=== PATIENT | male | born 1950 | race Caucasian/White ===

== ENCOUNTER 2016-10-11 09:49 | Emergency (ER) | payer OTHER ==
[~2016-10-11] VITALS: Ht 175.3 cm; Wt 74.8 kg
--- NOTE | 2016-10-11 10:36 | ED GI/GU/ABDOMINAL COMPLAINT ---
History of Present Illness General Chief Complaint: Abdominal Pain/Flank Pain Stated Complaint: ?KIDNEY STONES Source: patient Exam Limitations: no limitations Vital Signs & Intake/Output Vital Signs & Intake/Output Vital Signs Date Time Temp Pulse Resp B/P Pulse O2 O2 Flow FiO2 Ox Delivery Rate 10/11 1230 98.1 73 0 142/87 98 Room Air Room Air 10/11 0953 97.0 66 20 177/94 98 Room Air Room Air Allergies Coded Allergies: NO KNOWN ALLERGIES (10/11/16) Reconcile Medications Hydrocodone/Acetaminophen (Vicodin 5-300 MG Tablet) 5 MG-300 MG TABLET 1 TAB PO Q4-6 PRN PAIN Ondansetron HCl (Zofran) 4 MG TABLET 1 TAB PO Q6-8P PRN NAUSEA Tamsulosin HCl (Flomax) 0.4 MG CAP.ER.24H 1 CAP PO DAILY KIDNEY STONE Triage Note: PT TO ED WITH C/O SUDDEN ONSET OF BACK PAIN WHILE DRIVING TO WORK, HAS HX OF BACK SURGERY, HERNIATED DISC IN NECK, AND KIDNEY STONES. PT VOMITING IN WAITING ROOM GARBAGE PAIL. Triage Nurses Notes Reviewed? yes Onset: Abrupt Duration: constant Timing: single episode today Quality/Severity: sharpness, severe, stabbing, throbbing Severity Numbers: 10 Location: right flank Radiation: back Activities at Onset: none HPI: Patient is a 65-year-old male with a past medical history hypertension and kidney stones who presents to emergency room with a 3 hour history of sharp stabbing severe acute onset of right flank and right back pain. Symptoms are very similar to previous episodes of kidney stones. Patient has had multiple episodes of nonbloody nonbilious emesis. Last bowel movement was yesterday no blood no melena noted. No medications prior to arrival. (DELIA RADFORD) Past History Travel History Traveled to [place] past 21 day No Medical History Any Pertinent Medical History? see below for history Neurological: NONE EENT: NONE Cardiovascular: myocardial infarction, CAROTID SURG 2012 Respiratory: NONE Gastrointestinal: NONE Hepatic: NONE Renal: NONE Musculoskeletal: chronic back pain, disk herniation, LOW BACK 2004 Psychiatric: NONE Endocrine: NONE Blood Disorders: NONE Cancer(s): NONE Surgical History Surgical History: non-contributory Psychosocial History What is your primary language Slovenian Tobacco Use: Quit >30 days ago ETOH Use: occasional use Illicit Drug Use: denies illicit drug use Family History Hx Contributory? No (DELIA RADFORD) Review of Systems Review of Systems Constitutional: Reports: no symptoms. EENTM: Reports: no symptoms. Respiratory: Reports: no symptoms. Cardiovascular: Reports: no symptoms. GI: Reports: see HPI. Genitourinary: Reports: see HPI. Musculoskeletal: Reports: see HPI. Skin: Reports: no symptoms. Neurological/Psychological: Reports: no symptoms. Hematologic/Endocrine: Reports: no symptoms. Immunologic/Allergic: Reports: no symptoms. All Other Systems: Reviewed and Negative (DELIA RADFORD) Physical Exam Physical Exam General Appearance: moderate distress Gastrointestinal: normal bowel sounds, soft, rIGHT FLANK POINT TENDERNESS Comments: HEENT: Normal EENT exam, Neck: Supple, no lymphadenopathy, normal range of motion without pain or tenderness Back: Right CVA point tenderness Cardiovascular: Regular rate and rhythms no murmurs rubs or gallops, normal JVP Respiratory: Chest nontender. No respiratory distress.breath sounds clear to auscultation bilaterally Extremity: No edema, no calf tenderness to palpation, normal and equal pulses. Neuro: Alert oriented x3, motor sensory normal, Skin: No appreciable rash on exposed skin, skin is warm and dry. Psych: Mood and affect is normal, memory and judgment is normal. Core Measures ACS in differential dx? No Severe Sepsis Present: No Septic Shock Present: No (DELIA RADFORD) Progress Differential Diagnosis: AAA, AMI, appendicitis, biliary colic, bowel obstruction , colon cancer, cholecystitis, diverticulitis, epididymitis, esophageal varices, gastritis, hepatitis, hernia, hemorrhoids, ischemic bowel, inflamm bowel dis, Priya-Haroldo tear, orchitis, pancreatitis, prostatitis, peptic ulcer, PUD/GERD, perforated viscous, pyelonephritis, SBO, STD, testicular torsion, ureterolithiasis, urinary retention, urethritis, UTI/pyelo Plan of Care: Orders Procedure Date/time Status URINALYSIS 10/11 1035 Active COMPREHENSIVE METABOLIC PANEL 10/11 1027 Complete CBC WITHOUT DIFFERENTIAL 10/11 1027 Complete Laboratory Tests 10/11/16 1028: Anion Gap 12, Estimated GFR > 60, BUN/Creatinine Ratio 20.8, Glucose 136 H, Calcium 9.4, Total Bilirubin 0.8, AST 40, ALT 50, Alkaline Phosphatase 62, Total Protein 7.0, Albumin 4.3, Globulin 2.7, Albumin/Globulin Ratio 1.6, CBC w Diff NO MAN DIFF REQ, RBC 5.19, MCV 86.1, MCH 29.3, RDW 14.3, MPV 7.6, Gran % 86.2 H , Lymphocytes % 11.2 L, Monocytes % 2.1, Eosinophils % 0.4, Basophils % 0.1, Absolute Granulocytes 10.6 H, Absolute Lymphocytes 1.4, Absolute Monocytes 0.3, Absolute Eosinophils 0, Absolute Basophils 0, PUBS MCHC 34.0 10/11/2016 11:38:55 AM reevaluation the patient, patient had complete resolution of pain and is in no apparent distress and is noted on CT scan findings of right nephrolithiasis. Patient currently is being by mouth challenge Patient was able tolerate by mouth on discharge patient looks well no apparent distress and was strongly advised to follow-up urology and he will comply (KAYLEE LIZAMA,DELIA) Diagnostic Imaging: Viewed by Me: CT Scan. Radiology Impression: acute abnormality Initial ED EKG: none Comments: PATIENT: MOUNA FERNANDES PRESENT AGE: 65 PATIENT ACCOUNT NO: [id number] : 52 LOCATION: [facility] ORDERING PHYSICIAN: DELIA LIZAMA SERVICE DATE: 10/11/16 EXAM TYPE: CAT - CT ABD & PELVIS W/O IV CONTRAS EXAMINATION: CT ABDOMEN AND PELVIS WITHOUT CONTRAST CLINICAL INFORMATION: Right-sided flank pain. History of urolithiasis. COMPARISON: 08/29/2012. TECHNIQUE: Multidetector volumetric imaging was performed from the superior aspect of the liver through the pubic symphysis. Sagittal and coronal reformatted images were obtained on the technologist's workstation. DLP: 275 mGy-cm FINDINGS: LUNG BASES: There is a linear focus of discoid atelectasis in the right costophrenic angle posteriorly. KIDNEYS AND URETERS: Right kidney appears mildly edematous with mild perinephric stranding and mild right-sided hydronephrosis and proximal hydroureteronephrosis with a with a 3-4 mm proximal right ureteral calculus at the L3 level. There is a 2-3 mm right lower pole calculus with 2-3 smaller mid to upper pole right renal calculi also noted. A few small low-density right renal lesions are again noted not as well-seen on today's exam likely small cysts the largest appears septated with a peripheral calcification and cortical scarring slightly larger on today's exam 2.9 versus 2.6 cm on the previous exam. Imaging of the left kidney demonstrates multiple 3 under 5 mm calculi without evidence of hydronephrosis. There is a 1.8 cm cyst in the lower pole of the left kidney anteriorly previously 1.2 cm. BLADDER: Unremarkable. LIVER, GALLBLADDER, AND BILIARY TREE: The liver is normal in size, shape, and attenuation. No focal hepatic lesion or biliary ductal dilatation is present. The gallbladder is unremarkable with no evidence of radiopaque gallstones, gallbladder wall thickening, or obvious pericholecystic inflammatory changes. PANCREAS: Unremarkable. SPLEEN: Unremarkable. ADRENAL GLANDS: Unremarkable. GASTROINTESTINAL TRACT: Stomach and small bowel appear unremarkable. Appendix is normal-appearing. Colon is unremarkable in appearance. ABDOMINAL WALL: No significant hernia is appreciated. LYMPH NODES: Normal. VASCULAR: Abdominal aorta is tortuous with mild atherosclerotic aortic calcification with a 3.4 cm AP dimension fusiform shaped infrarenal abdominal aortic aneurysm measured on image 38 of series 2 previously 2.9 cm AP dimension. PELVIC VISCERA: Prostate is moderately enlarged, urinary bladder unremarkable. OSSEOUS STRUCTURES: There are multiple old healed right-sided rib fractures. There is mild to moderate loss of disc space height throughout the lumbar spine with mild to moderate broad-based disc osteophyte complexes most notably L2/L3 and 3/4 levels. No aggressive appearing osseous lesions are seen. IMPRESSION: 1. There is a 3 to 4 mm right proximal ureteral calculus with mild right-sided hydroureteronephrosis and mild edematous changes involving the right kidney. 2. Multiple small bilateral renal calculi. Stone burden has increased compared with the previous exam. 4. Small bilateral renal cysts are again noted, one of which is mildly complex in the lower pole of the right kidney. 3. Fusiform infrarenal abdominal aortic aneurysm. Follow-up is recommended. 4. Degenerative changes lumbar spine. (DELIA RADFORD) Departure Departure Disposition: HOME OR SELF CARE Condition: Stable Clinical Impression Primary Impression: Kidney stone on right side Referrals: HELENA SLADE MD (PCP/Family) HEMANTH BUTLER MD Additional Instructions: As discussed begin drinking plenty of water for hydration. Begin the prescription of Vicodin for pain, Zofran for nausea, and Flomax for your symptoms. Tomorrow please follow-up with your established urologist Dr. Butler for recheck of symptoms. If symptoms worsen return to emergency room. Prescriptions are waiting at your pharmacy Departure Forms: Customer Survey General Discharge Information Prescriptions: Current Visit Scripts Hydrocodone/Acetaminophen (Vicodin 5-300 MG Tablet) 1 TAB PO Q4-6 PRN PAIN #12 TAB Tamsulosin HCl (Flomax) 1 CAP PO DAILY #5 CAP Ondansetron HCl (Zofran) 1 TAB PO Q6-8P PRN NAUSEA #10 TAB (DELIA RADFORD) PA/STITCHING MACHINE SETTER Co-Sign Statement Statement: ED Attending supervision documentation- [x] I saw and evaluated the patient. I have also reviewed all the pertinent lab results and diagnostic results. I agree with the findings and the plan of care as documented in the PA's/STITCHING MACHINE SETTER's documentation. [] I have reviewed the ED Record and agree with the PA's/STITCHING MACHINE SETTER's documentation. [] Additions or exceptions (if any) to the PAs/STITCHING MACHINE SETTER's note and plan are summarized below: [] (DAIANA GARG DO
[2016-10-11 10:37] LABS: ABSOLUTE BASOPHIL COUNT 0 /CUMM (0.0-0.2); ABSOLUTE EOSINOPHIL COUNT 0 /CUMM (0.0-0.7); ABSOLUTE GRANULOCYTE CT 10.6 /CUMM (1.4-6.5); ABSOLUTE LYMPH COUNT 1.4 /CUMM (1.2-3.4); ABSOLUTE MONOCYTE COUNT 0.3 /CUMM (0.10-0.60); BASOPHIL % 0.1 % (0.0-2.0); EOSINOPHIL % 0.4 % (0-5); GRANULOCYTE % 86.2 % (42.2-75.2); HEMATOCRIT 44.7 % (42-52); MEAN CORPUSCULAR HGB 29.3 PG (27.0-31.0); MEAN CORPUSCULAR VOLUME 86.1 FL (80.0-94.0); MEAN PLATELET VOLUME 7.6 FL (7.4-10.4); PLATELET COUNT 210 /CUMM (130-400); RBC DISTRIBUTION WIDTH 14.3 % (11.5-14.5); RED BLOOD CELL CT 5.19 /CUMM (4.70-6.10); WHITE BLOOD CELL COUNT 12.3 /CUMM (4.8-10.8)
--- NOTE | 2016-10-11 11:22 | CT SCAN REPORT ---
EXAMINATION: CT ABDOMEN AND PELVIS WITHOUT CONTRAST CLINICAL INFORMATION: Right-sided flank pain. History of urolithiasis. COMPARISON: 08/29/2012. TECHNIQUE: Multidetector volumetric imaging was performed from the superior aspect of the liver through the pubic symphysis. Sagittal and coronal reformatted images were obtained on the technologist's workstation. DLP: 275 mGy-cm FINDINGS: LUNG BASES: There is a linear focus of discoid atelectasis in the right costophrenic angle posteriorly. KIDNEYS AND URETERS: Right kidney appears mildly edematous with mild perinephric stranding and mild right-sided hydronephrosis and proximal hydroureteronephrosis with a with a 3-4 mm proximal right ureteral calculus at the L3 level. There is a 2-3 mm right lower pole calculus with 2-3 smaller mid to upper pole right renal calculi also noted. A few small low-density right renal lesions are again noted not as well-seen on today's exam likely small cysts the largest appears septated with a peripheral calcification and cortical scarring slightly larger on today's exam 2.9 versus 2.6 cm on the previous exam. Imaging of the left kidney demonstrates multiple 3 under 5 mm calculi without evidence of hydronephrosis. There is a 1.8 cm cyst in the lower pole of the left kidney anteriorly previously 1.2 cm. BLADDER: Unremarkable. LIVER, GALLBLADDER, AND BILIARY TREE: The liver is normal in size, shape, and attenuation. No focal hepatic lesion or biliary ductal dilatation is present. The gallbladder is unremarkable with no evidence of radiopaque gallstones, gallbladder wall thickening, or obvious pericholecystic inflammatory changes. PANCREAS: Unremarkable. SPLEEN: Unremarkable. ADRENAL GLANDS: Unremarkable. GASTROINTESTINAL TRACT: Stomach and small bowel appear unremarkable. Appendix is normal-appearing. Colon is unremarkable in appearance. ABDOMINAL WALL: No significant hernia is appreciated. LYMPH NODES: Normal. VASCULAR: Abdominal aorta is tortuous with mild atherosclerotic aortic calcification with a 3.4 cm AP dimension fusiform shaped infrarenal abdominal aortic aneurysm measured on image 38 of series 2 previously 2.9 cm AP dimension. PELVIC VISCERA: Prostate is moderately enlarged, urinary bladder unremarkable. OSSEOUS STRUCTURES: There are multiple old healed right-sided rib fractures. There is mild to moderate loss of disc space height throughout the lumbar spine with mild to moderate broad-based disc osteophyte complexes most notably L2/L3 and 3/4 levels. No aggressive appearing osseous lesions are seen. IMPRESSION: 1. There is a 3 to 4 mm right proximal ureteral calculus with mild right-sided hydroureteronephrosis and mild edematous changes involving the right kidney. 2. Multiple small bilateral renal calculi. Stone burden has increased compared with the previous exam. 4. Small bilateral renal cysts are again noted, one of which is mildly complex in the lower pole of the right kidney. 3. Fusiform infrarenal abdominal aortic aneurysm. Follow-up is recommended. 4. Degenerative changes lumbar spine.
[2016-10-11] MEDS ORDERED: ZOFRAN4 M2 PO (12:00)
[2016-10-11] MEDS ORDERED: VICODIN 5-3001 EACH PO (12:00)
[2016-10-11] MEDS ORDERED: FLOMAX0.4 M1 PO (12:00)
[2016-10-11 12:30] VITALS: BP 142/87
[2016-10-20] MEDS ORDERED: ASPIRIN EC81 M1 PO (19:03)
[2016-10-20] MEDS ORDERED: PRALUENT P75 MG/1 ML INJ (19:03)
[2016-10-20] MEDS ORDERED: BYSTOLIC5 M1 PO (19:04)
[2016-10-28] MEDS ORDERED: RAPAFLO4 M1 (08:08)
== END 2016-10-11 12:53 ==
LOC: ERH 09:49
PROVIDERS: Emergency Medicine
DX: N20.0 Calculus of kidney (principal); M54.9 Dorsalgia, unspecified; I10 Essential (primary) hypertension; Z87.891 Personal history of nicotine dependence
CPT/HCPCS: 74176; 96374; 96375; J1885; J2405

== ENCOUNTER → 2016-10-25 | Day surgery (SDC) | payer OTHER ==
[~2016-10-25] VITALS: Ht 175.3 cm; Wt 74.8 kg
[~2016-10-25] MED LIST: ASPIRIN EC81 M1 PO; BYSTOLIC5 M1 PO; FLOMAX0.4 M1 PO; PRALUENT P75 MG/1 ML INJ; RAPAFLO4 M1; VICODIN 5-3001 EACH PO; ZOFRAN4 M2 PO
--- NOTE | 2016-10-25 11:42 | Operative Report ---
Operative/Inv Procedure Report Surgery Date: 10/25/16 Name of Procedure: right ureter ESWL/fluoroscopy Pre-Operative Diagnosis: bilateral stones Post-Operative Diagnosis: same Estimated Blood Loss: scant Surgeon/Hospice Aide: HEMANTH THOMPSON MD Anesthesia: moderate sedation Complications: none Operative/Procedure Note Note: The patient was taken to the operating room and placed on the ESWL table in supine position. With the patient awake, timeout was performed to cofirm correct identity, procedure, laterality, anesth., and other pertinent sean- operative information. The patient's RIGHT flank was placed over the table cut -out, overlying the dome of the shockwave generator. C-arm fluroscopy, as well as renal US, was used to locate the stone, and evaluate the RIGHT kidney. The stone was clearly visible on fluoroscopy at the distal right ureter, measuring approximately 7 mm in size. Renal US confimred mild hydronephrosis. After adequate anesthesia, the right ureter stone's position was optimized for Shockwave lithotrypsy using fluoroscopy in AP and oblique views. The E.S.W.L. was initiated at low power levels x 200 shocks. After noting the patient's tolerance to the shockwaves, the shock wave power level was quickly maximized. Toward the end of the procedure, the composition of the stone had changed significantly indicating the pulverization of the ureter stone. A total of 3000 shockwaves were delivered to the stone in order to achieve adequate lithotrypsy. The patient tolerated both the procedure well, was awakened, and taken to recovery in satisfactory condition via stretcher. The pt will be dischared home with pain meds, diet orders, and intructions to catch fragments with straining the urine. The patient is to have follow-up renal ultrasound and KUB in 1-2 weeks, prior to follow-up visit in my office. Findings: 7mm stone shattered at 3000. Discharge Disposition: Same Day Admissions CC: HEMANTH THOMPSON MD
== END ==
LOC: STS 02:11
DX: N20.1 Calculus of ureter (principal); Z87.442 Personal history of urinary calculi; I10 Essential (primary) hypertension; E78.00 Pure hypercholesterolemia, unspecified; Z87.891 Personal history of nicotine dependence; I25.2 Old myocardial infarction; Z79.82 Long term (current) use of aspirin
CPT/HCPCS: J2250

== ENCOUNTER → 2016-11-01 | Day surgery (SDC) | payer OTHER ==
[~2016-11-01] VITALS: Ht 175.3 cm; Wt 74.8 kg
--- NOTE | 2016-11-01 14:59 | Operative Report ---
Operative/Inv Procedure Report Surgery Date: 11/01/16 Name of Procedure: left renal ESWL Pre-Operative Diagnosis: left renal stones (2) Post-Operative Diagnosis: Same Estimated Blood Loss: none Surgeon/Category Development Manager: HEMANTH THOMPSON MD Anesthesia: laryngeal mask airway Complications: None Operative/Procedure Note Note: The patient was taken to the operating room and placed on the ESWL table in supine position. With the patient awake and participating, timeout was performed to confirm correct identity, procedure, laterality, anesthesia, and other pertinent sean-operative information. After adequate anesthesia, the patient was positioned so that the patient's left flank was positioned over the table cut-out, overlying the dome of the treatment head. Once the patient was adequately sedated, fluoroscopy, as well as Renal ultrasound was used to locate the LEFT renal stone. Renal US confirmed the presence of the stones which measured it to be approximately 5 and 6 mm adjacent in the upper pole stone. The 2 stones were faintly visible with fluoroscopy. Renal US revealed, no hydronephrosis, and no solid tumor, and presence of the stone. The position of the stones were optimized by using fluoroscopy in AP and oblique views;placing the stone within the ESWL c-arm crosshairs. Once the stone's position was optimized, the LEFT renal E.S.W.L. was initiated at low energy level. After noting the patient's tolerance to the shockwaves, the intensitiy was ramped up to maximum level. At the end of the procedure, the left renal stone had dissintegrated. Of note, a total of 2500 shockwaves were delivered to the stone. The patient tolerated the ESWL procedures well, was awakened, then taken to recovery in satisfactory condition via stretcher. The patient was dischared home with pain medications, diet orders, and intructions to catch fragments by straining the urine. The patient to to have follow-up renal ultrasound and KUB in 1 to 2 weeks, prior to follow-up visit in my office. He will then proceed with metabolic stone work-up. Discharge Disposition: PACU CC: HEMANTH THOMPSON MD
== END ==
LOC: STS 03:37
DX: N20.0 Calculus of kidney (principal); Z87.442 Personal history of urinary calculi; I10 Essential (primary) hypertension; E78.00 Pure hypercholesterolemia, unspecified
CPT/HCPCS: J2250